=== PATIENT | female | born 2000 | race Hispanic/Latino ===

== ENCOUNTER 2019-04-03 09:35 | Outpatient (CLI) | payer OTHER ==
--- NOTE | 2019-04-03 10:34 | ULT ---
ULTRASOUND OBSTETRICAL COMPLETE: DATE: 04/03/2019 HISTORY: 18-year-old female, encounter for supervision of otherwise normal in second trimester. FINDINGS: number: gaspar lie: Cephalic Maternal cervix: 3.5; cm. Closed. Placenta: Anterior. No placenta previa. Amniotic fluid volume: GLENNA = 13.5cm heart rate: 149 bpm The following anatomy is visualized, with no evidence of anomalies: Head, cerebellum, lateral ventricles, four-chamber heart, stomach, kidneys, cord insertion, bladder, cervical spine, thoracic spine, lumbar spine, sacrum, nose and lips, upper extremities, lower extreme venous, and three-vessel cord. biometry: Biparietal diameter (BPD): 5.4 cm 22 w 4 d Head circumference (HC): 21 cm 23 w 1 d Abdominal circumference (AC): 18.2 cm 23 w 1 d Femur length (FL): 3.9 cm 22 w 5 d Average ultrasound age (AUA): 23 w 0 d Estimated date of delivery (REAL): 07/31/2019 Estimated weight (EFW): 540 g +/- 79 g IMPRESSION: 1) Live 2nd trimester intrauterine gestation. 2) Estimated gestational age of 23 weeks, 0 days 3) cephalic lie. 4) no anatomic abnormality identified.
== END 2019-04-03 09:36 | disposition home or self-care (01) ==
LOC: BICULT 09:35
PROVIDERS: ATTEND Family Medicine
DX: Z34.82 Encounter for supervision of other normal pregnancy, second trimester (principal); Z3A.23 23 weeks gestation of pregnancy
CPT/HCPCS: 76805

== ENCOUNTER 2019-07-29 19:15 | Inpatient (IN) | payer OTHER ==
[~2019-07-29 19:15] MED LIST: Bupivacaine 0.25% HCL 30 ML VIAL ONE; Bupivacaine HCl 0.5%/Epinephrine 1:200,000/PF 30 ml Vial ONE; Bupivacaine/Epinephrine 0.25% 30 ML VIAL ONE
[2019-07-29] MEDS ORDERED: Methylergonovine 0.2 MG/ML VIAL IM PRN (21:33)
[2019-07-29] MEDS ORDERED: Ibuprofen 800 MG TAB PO PRN (21:33)
[2019-07-29] MEDS ORDERED: Carboprost 250 MCG/ML AMP IM PRN (21:33)
[2019-07-29] MEDS ORDERED: Lidocaine 1% (PF) 30 ML VIAL SC PRN (21:33)
[2019-07-29] MEDS ORDERED: Misoprostol 200 MCG TAB PR PRN (21:33)
[2019-07-29] MEDS ORDERED: HYDROcodone/Acetaminophen 5/325 mg Tablet PO PRN (21:33)
[2019-07-29] MEDS ORDERED: Diphenoxylate HCl/Atropine Tablet PO PRN (21:33)
[2019-07-29] MEDS ORDERED: NS w/ Oxytocin 10 units 500 ML IV SCH (21:45)
[2019-07-29 21:51] LABS: Hemoglobin 9.9 g/dL (12.0-16.0); Mean Corpuscular HGB CONC 33.7 g/dL (32.0-36.0); Mean Corpuscular Hemoglobin 25.2 pg (25.0-35.0); Mean Corpuscular Volume 74.9 fL (78.0-98.0); Mean Platelet Volume 10.3 fL (7.4-10.4); Platelet Count 219 thou/uL (130-400); RBC Distribution Width 15.7 % (11.5-14.5); Red Blood Cell (RBC) Count 3.93 mill/uL (4.00-5.20); White Blood Cell (WBC) Count 13.1 thou/uL (4.8-10.8)
[2019-07-29] MEDS: Misoprostol 100 MCG TAB PO SCH (22:22)
[2019-07-29 22:24] LABS: Syphilis Antibody Nonreactive (Nonreactive); Syphilis Antibody Index 0.03 S/CO (<1.00 Non-Reactive)
[2019-07-29 23:05] LABS: HBSAg Index 0.14 S/CO (0-0.99); Hep B Surf Ag Non-Reactive S/CO (NonReactive)
[2019-07-29] MEDS: NS w/ Oxytocin 10 units 500 ML IV SCH (23:16)
[2019-07-29 23:47] VITALS: BMI 46.6
[2019-07-30] MEDS: Misoprostol 100 MCG TAB PO SCH ×4 (02:37→21:22)
[2019-07-30] MEDS: Lactated Ringer's 1,000 ML IV SCH ×2 (05:59→09:53)
[2019-07-30] MEDS ORDERED: Fentanyl 4 mcg/Bup 0.1% Cadd 100 ML ONE ×2 (08:22→15:43)
[2019-07-30] MEDS ORDERED: Lidocaine 1.5%/Epinephrine 1:200,000 5 ML AMPUL IJ ONE (08:23)
[2019-07-30] MEDS ORDERED: ePHEDrine/0.9% NaCl/PF SYRINGE 50 mg/10 ml SLOW IVP PRN (09:09)
[2019-07-30] MEDS ORDERED: Lactated Ringer's 500 ML IV PRN (09:09)
[2019-07-30] MEDS ORDERED: Promethazine HCl 25 MG/ML VIAL IM PRN ×2 (09:09→21:27)
[2019-07-30] MEDS ORDERED: Ondansetron PF 4 MG/2 ML Vial IVP PRN ×2 (09:09→21:27)
[2019-07-30] MEDS ORDERED: diphenhydrAMINE 50 MG/ML VIAL IVP PRN (09:09)
[2019-07-30] MEDS ORDERED: Acetaminophen 325 MG TAB PO PRN (09:09)
[2019-07-30] MEDS ORDERED: Naloxone HCl 0.4 mg/ml Vial IVP PRN ×2 (09:09)
[2019-07-30] MEDS ORDERED: Communication Order-Pharmacy FS SCH (09:15)
[2019-07-30] MEDS: Fentanyl 4 mcg/Bupivacaine 0.1% Cassette 100 ML EPIDURAL SCH ×2 (09:25→15:54)
[2019-07-30] MEDS: NS w/ Oxytocin 10 units 500 ML IV SCH (10:20)
[2019-07-30] MEDS ORDERED: Dextrose 5%-Lactated Ringers 1,000 ML IV SCH (14:30)
[2019-07-30] MEDS ORDERED: Sodium Chloride 0.9% 0 ML ONE (17:38)
[2019-07-30] MEDS: Ampicillin 2 GM in Sodium Chloride 0.9% 100 ML IVPB SCH ×2 (17:42→23:18)
[2019-07-30] MEDS ORDERED: SODIUM CHLORIDE 0.9% IVPB SCH (18:00)
[2019-07-30] MEDS ORDERED: GENTAMICIN SULFATE IVPB SCH (18:00)
[2019-07-30] MEDS: GENTAMICIN SULFATE IVPB SCH (18:10)
[2019-07-30] MEDS: SODIUM CHLORIDE 0.9% IVPB SCH (18:10)
[2019-07-30] MEDS: NS / Oxytocin 40 units/1000ml 1,000 ML IV PRN ×2 (19:40→21:22)
[2019-07-30] MEDS ORDERED: hydrALAZINE 20 MG/ML VIAL ONE (21:07)
[2019-07-30] MEDS ORDERED: diphenhydrAMINE 25 MG CAP PO PRN (21:27)
[2019-07-30] MEDS ORDERED: Bisacodyl 10 MG SUPP PR PRN (21:27)
[2019-07-30] MEDS ORDERED: hydrALAZINE 20 MG/ML VIAL SLOW IVP PRN ×2 (21:27→22:57)
[2019-07-30] MEDS ORDERED: Lanolin Ointment 7 GM TUBE TOP PRN (21:27)
[2019-07-30] MEDS ORDERED: Benzocaine-Menthol 82.5 ML CAN TOP PRN (21:27)
[2019-07-30] MEDS ORDERED: NS / Oxytocin 40 units/1000ml 1,000 ML IV SCH (21:27)
[2019-07-30] MEDS ORDERED: Milk Of Magnesia 30 ML UDCUP PO PRN (21:27)
[2019-07-30] MEDS: Ibuprofen 800 MG TAB PO SCH (22:27)
[2019-07-30] MEDS: Docusate Calcium (SURFAK) 240 MG CAP PO SCH (22:27)
[2019-07-30] MEDS: HYDROcodone/Acetaminophen 5/325 mg Tablet PO PRN (22:28)
[2019-07-30] MEDS ORDERED: cloNIDine 0.1 MG TAB PO PRN (22:56)
[2019-07-31] MEDS: Ibuprofen 800 MG TAB PO SCH ×3 (04:13→21:22)
[2019-07-31] MEDS: Ampicillin 2 GM in Sodium Chloride 0.9% 100 ML IVPB SCH ×4 (05:09→22:31)
[2019-07-31 05:51] LABS: Hemoglobin 7.7 g/dL (12.0-16.0); Mean Corpuscular HGB CONC 32.4 g/dL (32.0-36.0); Mean Corpuscular Hemoglobin 24.2 pg (25.0-35.0); Mean Corpuscular Volume 74.8 fL (78.0-98.0); Mean Platelet Volume 9.6 fL (7.4-10.4); Platelet Count 172 thou/uL (130-400); RBC Distribution Width 15.6 % (11.5-14.5); Red Blood Cell (RBC) Count 3.19 mill/uL (4.00-5.20); White Blood Cell (WBC) Count 15.1 thou/uL (4.8-10.8)
[2019-07-31] MEDS: Docusate Calcium (SURFAK) 240 MG CAP PO SCH ×2 (08:44→21:22)
[2019-07-31] MEDS: Prenatal Vitamin 1 TAB PO SCH (08:44)
[2019-07-31] MEDS: Ferrous Sulfate 325 MG TAB PO SCH ×2 (08:44→17:01)
[2019-07-31] MEDS ORDERED: Sodium Chloride 0.9% 10 ML ONE (16:58)
[2019-07-31] MEDS: HYDROcodone/Acetaminophen 5/325 mg Tablet PO PRN ×2 (17:01→22:29)
[2019-07-31] MEDS: GENTAMICIN SULFATE IVPB SCH (18:52)
[2019-07-31] MEDS: SODIUM CHLORIDE 0.9% IVPB SCH (18:52)
[2019-08-01] MEDS: Ampicillin 2 GM in Sodium Chloride 0.9% 100 ML IVPB SCH (05:18)
[2019-08-01] MEDS: Ibuprofen 800 MG TAB PO SCH ×3 (05:18→21:23)
[2019-08-01] MEDS: HYDROcodone/Acetaminophen 5/325 mg Tablet PO PRN ×3 (05:27→18:24)
[2019-08-01] MEDS: Docusate Calcium (SURFAK) 240 MG CAP PO SCH ×2 (08:24→21:23)
[2019-08-01] MEDS: Ferrous Sulfate 325 MG TAB PO SCH ×2 (08:24→17:13)
[2019-08-01] MEDS: Prenatal Vitamin 1 TAB PO SCH (08:24)
[2019-08-02] MEDS: Ibuprofen 800 MG TAB PO SCH ×2 (05:43→13:46)
[2019-08-02] MEDS: Ferrous Sulfate 325 MG TAB PO SCH ×2 (08:13→17:45)
[2019-08-02] MEDS: Docusate Calcium (SURFAK) 240 MG CAP PO SCH (08:13)
[2019-08-02] MEDS: Prenatal Vitamin 1 TAB PO SCH (08:13)
[2019-08-02] MEDS: HYDROcodone/Acetaminophen 5/325 mg Tablet PO PRN ×2 (08:13→13:46)
[2019-08-02 08:57] VITALS: BP 114/54; TEMP 99
== END 2019-08-02 18:15 | disposition home or self-care (01) | DRG 806 ==
LOC: L&D 19:44 → 3SW 07-31 01:19
PROVIDERS: ADMIT Family Medicine; ATTEND Family Medicine
PROC: 10E0XZZ Delivery of Products of Conception, External Approach (ICD-10-PCS; principal; 2019-07-30)
PROC: 10907ZC Drainage of Amniotic Fluid, Therapeutic from Products of Conception, Via Natural or Artificial Opening (ICD-10-PCS; 2019-07-30)
PROC: 3E0P7VZ Introduction of Hormone into Female Reproductive, Via Natural or Artificial Opening (ICD-10-PCS; 2019-07-30)
PROC: 3E033VJ Introduction of Other Hormone into Peripheral Vein, Percutaneous Approach (ICD-10-PCS; 2019-07-30)
PROC: 0W8NXZZ Division of Female Perineum, External Approach (ICD-10-PCS; 2019-07-30)
PROC: 0KQM0ZZ Repair Perineum Muscle, Open Approach (ICD-10-PCS; 2019-07-30)
DX: O41.1230 Chorioamnionitis, third trimester, not applicable or unspecified (principal); O72.1 Other immediate postpartum hemorrhage; Z37.0 Single live birth; O69.81X0 Labor and delivery complicated by cord around neck, without compression, not applicable or unspecified; Z3A.40 40 weeks gestation of pregnancy; O99.214 Obesity complicating childbirth; E66.9 Obesity, unspecified; O70.1 Second degree perineal laceration during delivery
CPT/HCPCS: 36415; 36416; 51702; 85027; 86780; 86850; 86900; 86901; 87070; 87205; 87340; 88307; J0290; J0360; J0670; J1580; J2590; J3490; S0020